=== PATIENT | male | born 1955 | race Caucasian/White ===

== ENCOUNTER → 2019-03-16 06:42 | Outpatient (CLI) | payer OTHER, SELFPAY ==
--- NOTE | 2019-03-16 06:46 | XR_ITS ---
XR knee RT 3V HISTORY: Pain ITS.REASON: OSTEOARTHRITIS OF LT KNEE ORDERING PHYSICIAN: Teja Fraga MD PATIENT AGE: 63 years COMPARISON: 06/10/2012 FINDINGS: There are mild tricompartmental osteoarthritic changes. No acute fracture or dislocation is evident. Faint calcifications are noted over the proximal tibiofibular region not quite as dense as the previous exam and in part may be due to the technique. Small suprapatellar effusion noted. IMPRESSION: 1. Mild tricompartmental osteoarthritis which is overall not significant change. 2. 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
[2019-03-16 07:14] LABS: Basophils % 0.4 % (0.1-2.0); Eosinophils # 0.2 K/mm3 (0.0-0.4); Eosinophils % 1.8 % (0.1-12.0); Hematocrit 47.9 % (42.0-52.0); Hemoglobin 15.6 g/dL (14.1-18.0); Lymphocytes # 2.4 K/mm3 (0.7-4.5); Lymphocytes % 22.3 % (10-50); Mean Corpuscular HGB Conc 32.5 g/dL (31.8-35.4); Mean Corpuscular Volume 92.4 fl (80-94); Mean Platelet Volume 7.8 fl (7.4-10.4); Monocytes # 0.5 K/mm3 (0.1-1.0); Monocytes % 4.7 % (1.7-9.3); Neutrophils # 7.6 K/mm3 (1.8-7.8); Neutrophils % 70.8 % (37.0-80.0); Platelet Count 291 K/mm3 (142-424); Red Blood Count 5.18 M/mm3 (4.60-6.20); Red Cell Distribution Width 13.7 % (11.5-17.5); White Blood Count 10.8 K/mm3 (4.8-10.8)
[2019-03-16 10:13] LABS: Alanine Aminotransferase 44 U/L (12-78); Albumin Level 3.6 gm/dL (3.4-5.0); Albumin/Globulin Ratio 1.1 (1.1-1.8); Alkaline Phosphatase 133 U/L (46-116); Anion Gap 14.7 mEq/L (5-15); Aspartate Amino Transferase 16 U/L (15-37); Bilirubin,Total 0.3 mg/dL (0.2-1.0); Blood Urea Nitrogen 8 mg/dL (7-18); Calcium 9.2 mg/dL (8.5-10.1); Carbon Dioxide 25 mmol/L (21.0-32.0); Chloride 105 mmol/L (98-107); Chol/HDL Ratio 3.8 (1-3.5); Cholesterol 148 mg/dL (140-200); Creatinine,Serum 1.01 mg/dL (0.70-1.30); Estimated Glomerular Filt Rate 75 ml/min (>60); GFR (African American) 91 ML/MIN (>60); Globulin 3.2 gm/dl (1.3-3.2); Glucose 112 mg/dL (74-106); HDL Cholesterol 39 mg/dL (27-67); LDL Cholesterol 85 mg/dL (0-130); Potassium 3.7 mmoL/L (3.5-5.1); Sodium 141 mmol/L (136-145); Total Protein,Serum 6.8 gm/dL (6.4-8.2); Triglycerides 120 mg/dL (30-200); VLDL Cholesterol 24 mg/dL (0-40)
== END ==
PROVIDERS: PCP Internal Medicine Adolescent Medicine; Visit Provider Internal Medicine Adolescent Medicine
DX: E11.9 Type 2 diabetes mellitus without complications (principal); Z79.84 Long term (current) use of oral hypoglycemic drugs; M17.12 Unilateral primary osteoarthritis, left knee
CPT/HCPCS: 36415; 73562; 80053; 80061; 83036; 85025

== ENCOUNTER → 2019-09-20 07:49 | Outpatient (CLI) | payer OTHER, SELFPAY ==
--- NOTE | 2019-09-20 08:06 | CT_ITS ---
PROCEDURE: CT LUNG SCREENING CLINICAL INDICATION: CURRENT TOBACCO USE Forty pack-year smoking history, asymptomatic for lung cancer COMPARISON: No exams were available for comparison TECHNIQUE: The exam was performed on a GE Light Speed [address] scanner using 2.90 mGy CTDI. A low dose helical CT CHEST was performed on a multi-detector scanner. All CT scans at the facility use one or more dose reduction, viz: automated exposure control, ma/kV adjustment per patient size (including targeted exams where dose is matched to indication, i.e. head), or iterative reconstruction technique. The LDCT was performed in a facility that meets the criteria for the screening program. Data regarding this exam was submitted to ACR which is an approved registry. The order for this exam indicates that it came as a result of a lung cancer screening counseling shard decision-making visit that included all the elements required of such a visit including smoking cessation. The radiologist interpreting this exam meets the [facility] criteria for the LDCT lung cancer screening program. The exam is reported using the Lung-RADS classification scale and reported to the ACR registry. NOTE: This study was performed for the specific purposes of lung cancer screening and is not an alternative to diagnostic chest CT. RADIATION DOSE: CTDI vol(CT dose Index-volume) = 2.90mG DLP (Dose Length Product) = 111.77 mGcm FINDINGS: Centrilobular emphysema. No suspicious pulmonary nodules identified. Mild fibrotic changes/scarring in the lingula OTHER FINDINGS: There is an enlarged left paratracheal lymph node at 3.2 x 1.2 cm. There is an additional small mediastinal lymph node at the aortopulmonic window at 11 mm. Coronary artery calcifications are present IMPRESSION: 1. Lung rads category 1, negative. Recommend annual LD CT screening exam 2. Centrilobular emphysema/COPD 3. Coronary artery calcification. 4. Increased soft tissue density in the left paratracheal region. This may be either related to enlarged inferior extension of the thyroid gland or a paratracheal lymph node. CT of the neck with contrast or ultrasound of the thyroid may provide further evaluation. Follow-up is recommended. Dictated by: Shahzad Nathan MD 09/20/2019 14:44 Electronically signed by Shahzad Nathan MD in [place] 09/26/2019 07:03
== END ==
PROVIDERS: PCP Internal Medicine Adolescent Medicine; Visit Provider Internal Medicine Adolescent Medicine
DX: Z87.891 Personal history of nicotine dependence (principal); Z12.2 Encounter for screening for malignant neoplasm of respiratory organs

== ENCOUNTER → 2019-10-10 09:26 | Outpatient (CLI) | payer OTHER, SELFPAY ==
--- NOTE | 2019-10-10 09:34 | CT_ITS ---
PROCEDURE: CT SOFT TISSUE NECK W CON CLINICAL HISTORY: NECK MASS COMPARISON: No exams were available for comparison TECHNIQUE: Oral Contrast: 75 mL of Optiray 350 IV Contrast: None Axial images obtained with sagittal and coronal reformats. All CT scans at the facility use one or more dose reduction, viz: automated exposure control, ma/kV adjustment per patient size (including targeted exams where dose is matched to indication, i.e. head), or iterative reconstruction technique. FINDINGS: Images at the base of the skull show mild inflammatory changes right mastoids, left mastoids are clear. There is moderate mucoperiosteal thickening of the right maxillary sinus. The parotid glands and submandibular glands are grossly normal and symmetric bilaterally. The piriform sinuses are symmetric bilaterally. The thyroid gland shows homogeneous enhancement of both lobes with no definite nodules identified. There is no abnormal cervical lymphadenopathy.1 scanned in the upper chest show moderate amount of fat within the superior mediastinum. The visualized portions of the lung apices and upper lung larson are clear bilaterally. There is no abnormal cervical lymphadenopathy. IMPRESSION: Chronic inflammatory changes right maxillary sinus, mild acute and/or chronic right mastoiditis, otherwise essentially unremarkable CT exam of the neck Dictated by: Dr. Raf Rivero MD 10/10/2019 12:[address] Raf Rivero MD in [place] 10/10/2019 12:22
[2019-10-10 09:51] LABS: Blood Urea Nitrogen 9 mg/dL (7-18); Creatinine,Serum 0.88 mg/dL (0.70-1.30); Estimated Glomerular Filt Rate 88 ml/min (>60); GFR (African American) 106 ML/MIN (>60)
== END ==
PROVIDERS: PCP Internal Medicine Adolescent Medicine; Visit Provider Internal Medicine Adolescent Medicine
DX: R22.1 Localized swelling, mass and lump, neck (principal)
CPT/HCPCS: 36415; 70491; 82565; 84520

== ENCOUNTER → 2019-10-27 18:04 | Outpatient (CLI) | payer OTHER, SELFPAY ==
--- NOTE | 2019-10-27 18:09 | XR_ITS ---
PROCEDURE: XR KNEE LT 3V CLINICAL INDICATION: LEFT ANTERIOR KNEE PAIN COMPARISON: No exams were available for comparison FINDINGS: No fracture or dislocation. No lytic or blastic change. There is normal mineralization. There are mild osteoarthritic changes of all 3 compartments. There is a faint subcortical lucency the subcortical region of the right medial femoral condyle measuring 7 mm and could represent an area of osteochondrosis. On the lateral view there is a faint calcific lesion just posterior to the proximal tibia at 3 cm possibly due to a synovial osteo chondroma. This however is not noted to be separate from the bone. Small suprapatellar effusion suspected Other findings:None. IMPRESSION: 1. Osteoarthritis with possible osteochondrosis of the medial femoral condyle. 2. Faint calcific lesion along proximal tibia posteriorly and could be due to synovial osteo chondroma or an exophytic bony lesion. MRI of the knee may provide further evaluation. Dictated by: Shahzad Nathan MD 10/27/2019 18:31 Electronically signed by Shahzad Nathan MD in [place] 10/27/2019 18:32
[2019-10-27 18:13] LABS: Basophils # 0.1 K/mm3 (0-0.2); Basophils % 0.7 % (0.1-2.0); Eosinophils # 0.4 K/mm3 (0.0-0.4); Hematocrit 47.6 % (42.0-52.0); Hemoglobin 15.6 g/dL (14.1-18.0); Lymphocytes # 3.3 K/mm3 (0.7-4.5); Lymphocytes % 28.2 % (10-50); Mean Corpuscular HGB Conc 32.7 g/dL (31.8-35.4); Mean Corpuscular Hemoglobin 30.7 pg (27.0-31.2); Mean Corpuscular Volume 93.8 fl (80-94); Mean Platelet Volume 7.6 fl (7.4-10.4); Monocytes # 0.5 K/mm3 (0.1-1.0); Monocytes % 4.3 % (1.7-9.3); Neutrophils # 7.5 K/mm3 (1.8-7.8); Neutrophils % 63.7 % (37.0-80.0); Platelet Count 295 K/mm3 (142-424); Red Blood Count 5.07 M/mm3 (4.60-6.20); Red Cell Distribution Width 13.4 % (11.5-17.5); White Blood Count 11.7 K/mm3 (4.8-10.8)
[2019-10-27 18:23] LABS: Uric Acid 6.2 mg/dL (2.6-7.2)
== END ==
PROVIDERS: Visit Provider Nurse Practitioner Family
DX: M25.562 Pain in left knee (principal); M25.462 Effusion, left knee
CPT/HCPCS: 36415; 73562; 84550; 85025

== ENCOUNTER 2020-03-12 16:00 | Outpatient (RCR) | payer OTHER, SELFPAY ==
--- NOTE | 2020-02-27 17:20 | HMH.PTOPEV ---
PT Outpatient Evaluation Rehab PT Outpatient Evaluation Start: 02/27/20 16:41 Freq: Status: Active Protocol: Document 02/27/20 16:41 SHONDA (Rec: 02/27/20 17:19 PDESEROUX [id number]) Electronically Signed By Cb Arango, PT 02/27/20 16:41 Outpatient Therapy Subjective History Subjective History Pt. is a 64 year old male who presents to outpatient PT clinic with complaints of chronic and constant R superior/posterior P! of insidious onset 9 months ago pt. reports. Pt. also complains of increased numbness in digits of R hand since R shldr. P!. Pt. reports there was already numbness after my stroke, but it's increased now. Pt. denies symptoms into L cervical/ shoulder/LUE. Pt. denies recent diagnostic imaging no injections for current pathology. Pt. RTMD 03/18/20. Current medications include Metformin, Aspirin, Buproprion , Amlodipine Besylate, Atorvastatin, Diclofenac, and Losartan. PMH includes previous CVA 2015 and COPD. Chief Complaint Pain,Weakness Symptom Type Ache,Sharp,Dull,Numbness Symptoms Relieved By Rest/Positioning,Heat, Prescription Meds Symptoms Aggravated By Physical Activity,Lifting Prior Functional Limitations None Current Functional Limitations Reaching,Lifting,Dressing Symptom Description Constant and Continuous Level of pain today (0-10) 4 Pain scale - at its best (0-10) 2 Pain scale - at its worst (0-10) 8 Cervical Eval Palpation Cervical Muscles R Upper Trapezius,R Thoracic Paraspinals Cervical/Thoracic Palpation Findings Tenderness Posture Head/C-Spine Posture Sitting Position Flexed Head/C-Spine Posture Standing Position Flexed Flexibility Deficits Upper Trapezius Muscle Length (R) Severe Tightness Levaetor Scapulae Muscle Length (R) Severe Tightness Scalene Group Muscle Length (R) Severe Tightness Pectoralis Major Muscle Length (R) Severe Tightness Pectoralis Minor Muscle Length (R) Severe Tightness Passive Joint Mobility Cervical PIVM Dec: R C5/6
== END 2020-04-04 08:41 | disposition home or self-care (01) ==
LOC: PT.CARL 16:00
PROVIDERS: PCP Internal Medicine Adolescent Medicine; Visit Provider Internal Medicine Adolescent Medicine
DX: S46.811D Strain of other muscles, fascia and tendons at shoulder and upper arm level, right arm, subsequent encounter (principal)
CPT/HCPCS: 97012; 97110; 97140; 97163

== ENCOUNTER → 2020-06-28 07:00 | Outpatient (CLI) | payer OTHER, SELFPAY ==
[2020-06-28 12:59] LABS: Coronavirus 19 IgG Antibody Negative (Negative); Coronavirus 19 IgM Antibody Negative (Negative)
== END ==
PROVIDERS: Visit Provider Internal Medicine Gastroenterology
DX: Z01.818 Encounter for other preprocedural examination (principal); Z12.11 Encounter for screening for malignant neoplasm of colon
CPT/HCPCS: 36415; 86328

== ENCOUNTER 2020-06-29 07:23 | Day surgery (SDC) | payer OTHER, SELFPAY ==
[2020-06-25 15:27] VITALS: BMI 39.1
[2020-06-29 07:43] VITALS: BP 150/80; PULSE 82; RESP 18; TEMP 36.4; O2SAT 97
[2020-06-29 08:32] VITALS: O2SAT 98
--- NOTE | 2020-06-29 08:33 | HMH.PROC ---
[facility] Procedure Note Procedure Note:: Colonoscopy Procedure Report: Colonoscopy with cold snare polypectomy Endoscopist: Stanley Bergman II, MD Referring physician: Teja Fraga M.D. Date of Procedure: June 29, 2020 Equipment: Olympus 180 variable stiffness pediatric colonoscope Sedation: MAC sedation Indication: Mr. Oliva is a 65-year-old gentleman who is here for initial screening colonoscopy. He reports no abdominal pain, weight loss, change in his bowel habits or rectal bleeding. He reports no family history of colon cancer. Procedure: Prior to the procedure, a history and physical exam was performed, and patient's medications and allergies were reviewed. The risks, benefits and alternatives of the sedation and procedure were discussed with the patient. All questions were answered and informed consent was obtained. The patient was brought to the procedure room. Patient identification and proposed procedure were verified by the physician and the nurse. The patient was placed in a left lateral decubitus position and the scope was passed under direct vision. Throughout the procedure, the patient's blood pressure, pulse, and oxygen saturations were monitored continuously. The colonoscopy was accomplished without difficulty. The patient tolerated the procedure well. Findings: On digital rectal examination there was normal rectal tone. There were no external hemorrhoids. The colonoscope was introduced through the anal canal to the rectum and advanced to the cecum. The ileocecal valve and appendiceal orifice were identified. The scope was advanced a short distance into the ileum which appeared grossly normal. The scope was then withdrawn into the colon. The cecum and ascending colon were grossly normal. There was 4 polyps (transverse x1 (3 to 4 mm) and sigmoid x3 (2, 5 and 5 mm)) all of which were removed via cold snare polypectomy. There were scattered diverticuli throughout the descending and sigmoid colon (LEFT colon). The rectum itself was normal. Upon retroflexion within the rectum there were grade 1-2 internal hemorrhoids. The preparation was excellent throughout with [place] Preparation Score of 9. The cecal time was 12 minutes. Impression: 1. Diminutive colonic polyps x4 2. Left-sided diverticulosis 3. Grade 1-2 internal hemorrhoids Plan: I will follow up the polyp pathology and recommend repeat colonoscopy again in 5-7 years based upon the polyp histology. I would encourage bulk fiber supplementation on a long-term daily maintenance basis.
--- NOTE | 2020-06-29 08:38 | HMH.ANESCL ---
[facility] Anesthesia Checklist - Patient Identification Patient Identification: Arm Band, Verbal (Name & ) - Structural Data Admitted From: Home Planned Operative Procedure/s: Colonoscopy Consent for Planned Operative Procedure(s) Verified: Yes Verified Documents: Surgical Consent, History and Physical - NPO Status Verified Time NPO: 00:00 - Chart Verification Results Verified: None - Additional verifications Anesthesia Reactions: No - Airway Assessment C-Spine Mobility Assessed: Yes TMJ Mobility Assessed: Yes Dentition: Poor Dentition (Missing) - Neurological Assessment Level of Consciousness: Awake, Alert, Appropriate, Follows Commands Hx Seizures: No Numbness or tingling in extremities: Yes (Hands and feet) - Anesthesia Plan Anesthesia Risk discussed: Yes Anesthesia Plan: Verified ASA Class: III Anesthesia Type: MAC [facility] [place] History I have reviewed the patient's past medical history: Yes Medical History: Reports:: Chronic Obstructive Pulmonary Disease (COPD), Cerebrovascular Accident, Depression, Diabetes Mellitus Type 2, Hyperlipidemia, Hypertension, Transient Ischemic Attacks (TIA) Denies:: Cancer, Diabetes Mellitus Type 1, Internal Pacemaker, MRSA, Seizures *Have you ever received a pneumonia vaccine?: Yes *Have you received a flu vaccine this season?: No Comment:: ELOY uses CPAP, obesity, neuropathy Anesthesia experience/problems:: No prior complications Other Surgeries: Yes: Cholecystectomy. No: Pacemaker Amputation: No Fractures: Yes - *Social History Last grade of school completed: High school graduate Smoking Status: Current every day smoker Tobacco Type: cigarettes # Packs/Day (cigarettes): 1 Alcohol Intake: current Alcohol Intake Frequency:: holidays/special occasions only Substance Use Type: denies use *Occupational Status:: employed Housing: house *Travel in the last 8 weeks: None - Psychiatric History Pschychiatric History:: Reports:: Depression Family Hx:: Unable to obtain
[2020-06-29 08:55] VITALS: BP 129/84; PULSE 69; RESP 16; TEMP 36.8; O2SAT 94
[2020-06-29 09:05] VITALS: BP 158/96; PULSE 56; RESP 16; O2SAT 94
[2020-06-29 09:15] VITALS: BP 132/70; PULSE 70; RESP 16; O2SAT 95
[2020-06-29 09:25] VITALS: BP 145/82; PULSE 72; RESP 16; O2SAT 95
[2020-06-29 10:11] LABS: POC Glucose,Bedside 102 (70-110)
== END 2020-06-29 09:25 | disposition home or self-care (01) ==
LOC: OUTP 07:25
PROVIDERS: PCP Internal Medicine Adolescent Medicine; Visit Provider Internal Medicine Gastroenterology
PROC: 0DJD8ZZ Inspection of Lower Intestinal Tract, Via Natural or Artificial Opening Endoscopic (ICD-10-PCS; CPT 45378; principal; 2020-06-29 08:30)
DX: Z12.11 Encounter for screening for malignant neoplasm of colon (principal); K63.5 Polyp of colon; K57.30 Diverticulosis of large intestine without perforation or abscess without bleeding; K64.0 First degree hemorrhoids; J44.9 Chronic obstructive pulmonary disease, unspecified; F32.9 Major depressive disorder, single episode, unspecified; E11.9 Type 2 diabetes mellitus without complications; E78.5 Hyperlipidemia, unspecified; I10 Essential (primary) hypertension; Z86.73 Personal history of transient ischemic attack (TIA), and cerebral infarction without residual deficits; Z72.0 Tobacco use; Z79.899 Other long term (current) drug therapy
CPT/HCPCS: 45385; 82962

== ENCOUNTER → 2021-04-30 08:00 | Outpatient (CLI) | payer OTHER, SELFPAY ==
[2021-05-01 14:50] LABS: Alanine Aminotransferase 38 U/L (12-78); Albumin Level 4.4 g/dl (3.5-5.0); Albumin/Globulin Ratio 1.6 (1.1-1.8); Alkaline Phosphatase 96 U/L (38-126); Anion Gap 15.8 mEq/L (5-15); Aspartate Amino Transferase 39 U/L (17-59); Bilirubin,Total 0.5 mg/dl (0.2-1.3); Blood Urea Nitrogen 14 mg/dl (9-20); Calcium 9.2 mg/dl (8.4-10.2); Carbon Dioxide 23 mmol/L (22.0-30.0); Chloride 103 mmol/L (98-107); Cholesterol 247 mg/dl (140-200); Estimated Glomerular Filt Rate 75 ml/min (>60); GFR (African American) 91 ML/MIN (>60); Globulin 2.7 g/dL (1.3-3.2); Glucose 97 mg/dl (74-100); HDL Cholesterol 41 mg/dl (40-60); Potassium 4.8 mmoL/L (3.5-5.1); Sodium 137 mmol/L (136-145); Total Protein,Serum 7.1 g/dl (6.3-8.2); Triglycerides 220 mg/dl (30-150); VLDL Cholesterol 44 mg/dL (0-40)
[2021-05-01 15:01] LABS: Direct LDL Cholesterol 168.31 mg/dL (100-129)
== END ==
PROVIDERS: Visit Provider Internal Medicine Adolescent Medicine
DX: E78.5 Hyperlipidemia, unspecified (principal)
CPT/HCPCS: 80053; 80061

== ENCOUNTER → 2023-04-03 10:45 | Outpatient (CLI) | payer OTHER, SELFPAY ==
--- NOTE | 2023-04-03 10:48 | CT_ITS ---
FINAL REPORT TECHNIQUE: Axial images were obtained from the lung apex to the mid abdomen by computed tomography. This study was performed with techniques to keep radiation doses as low as reasonably achievable (ALARA). Individualized dose reduction techniques using automated exposure control or adjustment of mA and/or kV according to the patient's size were employed. CLINICAL HISTORY: NICOTINE USE, SMOKES 1 1/2 PKS PER DAY X 50 YEARS COPD COMPARISON: 09/20/2019 FINDINGS: CHEST CT LOW DOSE CTDI vol (mGy): 2.90 DLP (mGy-cm): 115.16 There is no axillary adenopathy. There is no hilar or mediastinal adenopathy. The heart is normal in size. There is no pericardial or pleural effusion. Lung window images demonstrate no suspicious infiltrate or nodule. There is scarring at the left base. Limited images of the upper abdomen are unremarkable. IMPRESSION: Lung RADS category 1. Recommend 12 month follow-up low-dose chest CT. Reviewed, Interpreted and Dictated by Austin Tomlinson MD Transcribed by Yuni Ramirez Authenticated and [facility]
== END ==
PROVIDERS: PCP Internal Medicine Adolescent Medicine; Visit Provider Internal Medicine Adolescent Medicine
DX: Z87.891 Personal history of nicotine dependence (principal); Z12.2 Encounter for screening for malignant neoplasm of respiratory organs
CPT/HCPCS: 71271

== ENCOUNTER 2023-06-07 10:25 | Emergency (ER) | payer OTHER, SELFPAY ==
--- NOTE | 2023-06-07 10:40 | EXP.UTC ---
Discharge Plan Disposition Patient Disposition: Home, Self-Care Condition: Good Prescriptions Prescriptions: New benzonatate [benzonatate] 100 mg capsule 100 mg PO TIDP PRN (Reason: Cough) Qty: 30 0RF prednisone 10 mg tablet 10 mg PO DIRECTED 9 Days Qty: 21 0RF Rx Instructions: Take 4 tablets daily for 3 days, then take 2 tablets daily for 3 days, then take 1 tablet daily for 3 days, then stop. amoxicillin [amoxicillin] 875 mg tablet 875 mg PO Q12H Qty: 20 0RF albuterol sulfate [Ventolin HFA] 90 mcg/actuation HFA aerosol inhaler 2 puff inhalation Q6H PRN (Reason: shortness of breath or wheezing) Qty: 6.7 0RF No Action atorvastatin 80 mg tablet 80 mg PO DAILY aspirin [Adult Low Dose Aspirin] 81 mg tablet,delayed release (DR/EC) 81 mg PO DAILY bupropion HCl 150 mg tablet extended release 24 hr 150 mg PO DAILY amlodipine-benazepril 10-40 mg capsule 1 cap PO DAILY hydrochlorothiazide 25 mg tablet 25 mg PO DAILY celecoxib [Celebrex] 200 mg capsule 200 mg PO BID Referrals Follow up/Referrals: Teja Fraga MD [Primary Care Provider] - See instructions Activity Restrictions/Add. Instructions Additional Instructions/Restrictions: Drink plenty of fluids. Take tylenol or ibuprofen for pain or fever. Take the medications as directed. Follow up with your regular doctor. GO TO THE ER FOR ANY WORSENING SYMPTOMS Clinical Impressions Clinical Impression: COPD exacerbation, Acute bronchitis, Sinusitis Instructions Patient Instructions: DI for Chronic Obstructive Pulmonary Disease, DI for Sinusitis, DI for Acute Bronchitis Discharge ED Provider: Osvaldo Diaz [facility] General Stated complaint: cough and SOA Time Seen by Provider: 06/07/23 10:40 History of Present Illness Provider Complaint: He states that for the past 2 weeks he has had worsening chest congestion, sinus congestion, malaise, and cough. He has a history of copd. Related Data Home Medications Medication Instructions Recorded Confirmed aspirin 81 mg tablet,delayed 81 mg PO DAILY CAD 12/08/18 12/04/20 release (Adult Low Dose Aspirin) atorvastatin 80 mg tablet 80 mg PO DAILY Cholesterol 12/08/18 12/04/20 bupropion HCl 150 mg 24 hr tablet, 150 mg PO DAILY Depression 12/08/18 12/04/20 extended release amlodipine 10 mg-benazepril 40 mg 1 cap PO DAILY 12/19/21 12/19/21 capsule celecoxib 200 mg capsule (Celebrex) 200 mg PO BID 12/19/21 12/19/21 hydrochlorothiazide 25 mg tablet 25 mg PO DAILY 12/19/21 12/19/21 Previous Rx's Medication Instructions Recorded albuterol sulfate 90 mcg/actuation 2 puff inhalation Q6H PRN 06/07/23 aerosol inhaler (Ventolin HFA) shortness of breath or wheezing #6.7 grams amoxicillin 875 mg tablet 875 mg PO Q12H #20 tabs 06/07/23 benzonatate 100 mg capsule 100 mg PO TIDP PRN Cough #30 caps 06/07/23 prednisone 10 mg tablet 10 mg PO DIRECTED 9 days #21 06/07/23 tabs Allergies Allergy/AdvReac Type Severity Reaction Status Date / Time No Known Allergies Allergy Verified 12/19/21 15:19 [facility] Disclaimer: The information contained in this section may have been updated after the patient was seen, as this information can be updated by other users. Social History Smoking Status: Current every day smoker tobacco type: cigarettes packs per day: 1 alcohol intake: current substance use type: denies use current occupational status: employed Travel in the last 8 weeks: None housing: house current occupation: [employer] current occupational exposures/hazards: No caffeine: Yes ROS Obtained: Yes All systems reviewed & no additional complaints except as documented Constitutional Constitutional: Reports poor appetite Eyes Eyes: Reports system reviewed and no additional complaints, except as documented ENT Ears, Nose, Mouth, and Throat: Reports as per HPI Cardiovascular Cardiovascular:
--- NOTE | 2023-06-07 10:42 | XR_ITS ---
PROCEDURE INFORMATION: Exam: XR Chest Exam date and time: 06/07/2023 10:52 AM Age: 68 years old Clinical indication: Cough and shortness of breath; Additional info: SOA TECHNIQUE: Imaging protocol: Radiologic exam of the chest. Views: 2 views. COMPARISON: CT LUNG SCREENING 04/03/2023 10:57 AM FINDINGS: Lungs: No focal airspace disease. Pleural spaces: Unremarkable. No pleural effusion. No pneumothorax. Heart/Mediastinum: Cardiomediastinal silhouette is within normal limits. Bones/joints: Unremarkable. IMPRESSION: No acute cardiopulmonary abnormality.
[2023-06-07 10:47] VITALS: BP 151/73; PULSE 69; RESP 18; TEMP 36.7; O2SAT 95; BMI 38.0
[2023-06-07 11:53] VITALS: BP 151/73; PULSE 69; RESP 18; TEMP 36.7; O2SAT 95
== END 2023-06-07 11:54 | disposition home or self-care (01) ==
PROVIDERS: Emergency Provider Nurse Practitioner Family; PCP Internal Medicine Adolescent Medicine
DX: J44.1 Chronic obstructive pulmonary disease with (acute) exacerbation (principal); J20.9 Acute bronchitis, unspecified; J01.90 Acute sinusitis, unspecified; R53.81 Other malaise; F17.210 Nicotine dependence, cigarettes, uncomplicated
CPT/HCPCS: 71046; 96372; 99204; 99212; G0463; J0696

== ENCOUNTER 2024-11-25 12:41 | Outpatient (CLI) | payer BC, SELFPAY ==
--- NOTE | 2024-11-25 12:43 | XR_ITS ---
FINAL REPORT CLINICAL HISTORY: cough, chest congestion, pneumonia COMPARISON: 11/07/2019 FINDINGS: There are increased markings in the left perihilar region suspicious for pneumonia. The right lung is clear. There is no evidence of effusion or other pleural disease. The mediastinum has a normal appearance. The cardiac silhouette is unremarkable. IMPRESSION: Left perihilar pneumonia. Reviewed, Interpreted and Dictated by Berlin Pitt MD Transcribed by Gisela Rosado Authenticated and [facility]
== END 2024-11-25 23:59 | disposition home or self-care (01) ==
LOC: RAD 12:42
PROVIDERS: PCP Internal Medicine Adolescent Medicine; Visit Provider Nurse Practitioner Family
DX: J18.9 Pneumonia, unspecified organism (principal); J20.9 Acute bronchitis, unspecified; R05.9 Cough, unspecified
CPT/HCPCS: 71046

== ENCOUNTER 2025-03-21 06:51 | Outpatient (CLI) | payer BC, SELFPAY ==
--- OUTSIDE RECORDS SUMMARY | 2025-03-21 06:54 | XMS_ITS | Data Portability ---
Author Organization [facility] Address [address] [place] [address] Assessment Encounter Date Assessment Date Assessment LastModified by Organization Details LastModified Time 12/05/2024 12/05/2024 He says colonoscopy and screening lung scan are UTD. We will request [email or web address] Not available 12/11/2024 19:38:43 Plan of Treatment Reminders Order Date Submit Date Provider Last Modified By Organization Details Last Modified Time Details Appointments FOLLOW UP 30 2024 08:00A Paige Garay APRN Not available Not available Not available Lab HbA1c (hemoglob in A1c), blood [address], [address], 03/13/2025 09:54:24 CMP, serum or plasma 2024 025 [email or web address] [address] [place] [address], [id number], 03/15/2025 07:07:31 lipid panel, serum 2024 025 [email or web address], [address] [place] [address], [address], 03/15/2025 07:07:32 vitamin D, 25-hydrox y, total, serum 2024 025 [email or web address], [address] [place] [address], [address], 03/15/2025 07:07:32 vitamin D, 25-hydrox y, total, serum 2024 025 [facility] [place], [address], 11/29/2024 08:13:38 PSA, total, serum or plasma 2024 025 [facility] [address] [place] [address], [address], 11/29/2024 08:13:37 CMP, serum or plasma 2024 025 [facility] [address] [place] [address], [address], 11/29/2024 08:13:34 microalbu min/creat inine, mass ratio, urine 2024 025 [facility] [address] [place] [address], [address], 11/29/2024 08:13:35 CBC w/ auto diff 2024 025 [facility] [address] [place] [address], [address], 11/29/2024 08:13:33 lipid panel, serum 2024 025 [facility] [address] [place] [address], [address], 11/29/2024 08:13:35 HbA1c (hemoglob in A1c), blood 2024 025 [facility] [address] [place] [address], [address], 11/29/2024 08:13:36 urinalysi s, dipstick [address]23 [email or web address], [address], 09/20/2024 17:41:10 HbA1c (hemoglob in A1c), blood [address], [address] [place] [address], [address], 09/20/2024 17:41:10 HbA1c (hemoglob in A1c), blood [address], [address], 03/18/2023 16:29:44 urinalysi s, dipstick [address], [address], 03/18/2023 16:29:44 Referral dermatolo gist referral - Dr Cuellar [facility], first avail 2024 025 [email or web address] Cuellar MD, [address] [place] [address], [address], 03/20/2025 12:15:00 Procedures None recorded. Surgeries None recorded. Imaging CT, chest, w/o contrast - prefers AM appt please 2024 025 [email or web address] [facility] [address], [place], [address], 03/20/2025 09:59:24 XR, chest, 2 view [email or web address] [place] [address], [address], 12/12/2024 12:45:43 XR, chest, 2 view [email or web address], [address], 11/28/2024 11:37:42 Medication Orders Symbicort 160 mcg-4.5 mcg/actua tion HFA aerosol inhaler 2024 025 [facility], [address] [place] [address], [address], 03/13/2025 16:38:47 Celebrex 200 mg capsule 2024 025 [facility], [address] [place] [address], [address], 03/13/2025 16:38:45 Jardiance 10 mg tablet 2024 025 [facility], [address] [place] [address], [address], 03/13/2025 16:38:41 rosuvasta tin 10 mg tablet 2024 025 [facility], [address] [place] [address], [address], 03/13/2025 16:38:25 nystatin 100,000 unit/gram topical powder 2024 025 [facility], [address] [place] [address], [address], 03/13/2025 16:38:32 amlodipin e 10 mg-benaze pril 40 mg capsule 2024 025 [facility], [address] [place] [address], [address], 03/13/2025 16:38:37 hydrochlo rothiazid e 25 mg tablet 2024 025 [facility], [address] [place] [address], [address], 03/13/2025 16:38:29 ergocalci ferol (vitamin D2) 1,250 mcg (50,000 unit) capsule 2024 025 [facility], [address] [place] [address], [address], 12/05/2024 15:20:40 Jardiance 10 mg tablet 2024 025 [facility], [address] [place] [address], [address], 12/08/2024 15:29:52 rosuvasta tin 10 mg tablet 2024 025 [facility], [address] [place] [address], [address], 12/08/2024 15:29:52 amlodipin e 10 mg-benaze pril 40 mg capsule 2024 025 [facility], [address] [place] [address], [address], 12/05/2024 15:20:41 hydrochlo rothiazid e 25 mg tablet 2024 025 [facility], [address] [place] [address], [address], 12/05/2024 15:20:39 ceftriaxo ne 1 gram solution for injection 2024 025 [email or web address] Not available 12/05/2024 14:33:19 Mucinex DM 30 mg-600 mg tablet,ex tended release 12 hr 2024 025 [facility], [address] [place] [address], [address], 12/05/2024 15:45:51 cefdinir 300 mg capsule 2024 025 [facility], [address] [place] [address], [address], 12/05/2024 15:45:51 ProAir HFA 90 mcg/actua tion aerosol inhaler 2024 025 [facility], [address] [place] [address], [address], 11/28/2024 10:56:26 Patient TargetsNo targets recorded. Patient Instructions Encounter Date Encounter Id Patient Instructions Last Modified By Organization Details Last Modified Time 09/20/2024 [id number] visual acuity* [email or web address] Not available 02/06/2025 13:37:03 Reason for Referral [employer] Referral for N eoplasm of skin Dr Polo Armenta [place], first avail Referring Physician: Lauryn Garay, Family Medicine, Encounter Date: 03/13/2025 Results Created Date Observation Date Name Description Value Unit Range Abnormal Flag Note LastModifiedBy Organization Detail LastModifiedTime 03/18/2003/18/2023 urina lysis , dipst ick Leukocytes Negati ve Not Available [address], [address], 03/18/2023 16:25:22 03/18/20 23 03/18/2023 urina lysis , dipst ick Nitrite negati ve Not Available [address], [address], 03/18/2023 16:25:22 03/18/20 23 03/18/2023 urina lysis , dipst ick Urobilinogen .2 Not Available [address], [address], 03/18/2023 16:25:22 03/18/20 23 03/18/2023 urina lysis , dipst ick Protein Negati ve Not Available [address], [address], 03/18/2023 16:25:22 03/18/20 23 03/18/2023 urina lysis , dipst ick pH 6.5 Not Available [address], [address], 03/18/2023 16:25:22 03/18/20 23 03/18/2023 urina lysis , dipst ick Blood Non-He molyze d: Trace Not Available [address], [address], 03/18/2023 16:25:22 03/18/20 23 03/18/2023 urina lysis , dipst ick Specific [place] 1.020 Not Available [address], [address], 03/18/2023 16:25:22 03/18/20 23 03/18/2023 urina lysis , dipst ick Ketone Negati ve Not Available [address], [address], 03/18/2023 16:25:22 03/18/20 23 03/18/2023 urina lysis , dipst ick Bilirubin Negati ve Not Available [address], [address], 03/18/2023 16:25:22 03/18/20 23 03/18/2023 urina lysis , dipst ick Glucose Negati ve Not Available [address], [address], 03/18/2023 16:25:22 03/18/20 23 03/18/2023 urina lysis , dipst ick Appearance Clear Not Available [address], [address], 03/18/2023 16:25:22 03/18/20 23 03/18/2023 urina lysis , dipst ick Color Pale Yellow Not Available [address], [address], 03/18/2023 16:25:22 03/18/20 23 03/18/2023 HbA1c (hemo globi n A1c), blood HbA1c 6.5 Not Available [address], [address], 03/18/2023 16:25:15 09/20/20 24 09/20/2024 urina lysis , dipst ick Leukocytes Negati ve Not Available [address], [address], 09/20/2024 16:55:21 09/20/20 24 09/20/2024 urina lysis , dipst ick Nitrite negati ve Not Available [address], [address], 09/20/2024 16:55:21 09/20/20 24 09/20/2024 urina lysis , dipst ick Urobilinogen 1 Not Available [address], [address], 09/20/2024 16:55:21 09/20/20 24 09/20/2024 urina lysis , dipst ick Protein Negati ve Not Available [address], [address], 09/20/2024 16:55:21 09/20/20 24 09/20/2024 urina lysis , dipst ick pH 6.5 Not Available [address], [address], 09/20/2024 16:55:21 09/20/20 24 09/20/2024 urina lysis , dipst ick Blood Non-He molyze d: Trace Not Available [address], [address], 09/20/2024 16:55:21 09/20/2009/20/2024 urina lysis , dipst ick Specific [place] 1.030 Not Available [address], [address], 09/20/2024 16:55:21 09/20/20 24 09/20/2024 urina lysis , dipst ick Ketone Negati ve Not Available [address], [address], 09/20/2024 16:55:21 09/20/2009/20/2024 urina lysis , dipst ick Bilirubin Negati ve Not Available [address], [address], 09/20/2024 16:55:21 09/20/2009/20/2024 urina lysis , dipst ick Glucose Negati ve Not Available [address], [address], 09/20/2024 16:55:21 09/20/2009/20/2024 urina lysis , dipst ick Appearance Clear Not Available [address], [address], 09/20/2024 16:55:21 09/20/2009/20/2024 urina lysis , dipst ick Color Yellow Not Available [address], [address], 09/20/2024 16:55:21 09/20/20 24 09/20/2024 HbA1c (hemo globi n A1c), blood HbA1c 6.2 Not Available [address], [place], [address], 09/20/2024 16:55:28 11/28/19 25 11/29/2024 CBC WITH DIFFE RENTI AL/PL ATELE T WBC 10.5 x10e3 /uL 3.4-10 .8 normal Not Available [facility] ([facility]) [address], [place], [address], 11/29/2024 08:13:33 11/28/19 25 11/29/2024 CBC WITH DIFFE RENTI AL/PL ATELE T RBC 5.30 x10e6 /uL 4.14-5 .80 normal Not Available [facility] ([facility]) [address] [place], [address], 11/29/2024 08:13:33 11/28/19 25 11/29/2024 CBC WITH DIFFE RENTI AL/PL ATELE T hemoglobin 15.8 g/dL 13.0-1 7.7 normal Not Available [facility] ([facility]) [address], [place], [address], 11/29/2024 08:13:33 11/28/19 25 11/29/2024 CBC WITH DIFFE RENTI AL/PL ATELE T hematocrit 47.5 % 37.5-5 1.0 normal Not Available [facility] ([facility]) [address] [place], [address], 11/29/2024 08:13:33 11/28/19 25 11/29/2024 CBC WITH DIFFE RENTI AL/PL ATELE T MCV 90 fL 79-97 normal Not Available [facility] ([facility]) [address] [place], [address], 11/29/2024 08:13:33 11/28/19 25 11/29/2024 CBC WITH DIFFE RENTI AL/PL ATELE T MCH 29.8 pg 26.6-3 3.0 normal Not Available [facility] ([facility]) [address], [place], [address], 11/29/2024 08:13:33 11/28/19 25 11/29/2024 CBC WITH DIFFE RENTI AL/PL ATELE T MCHC 33.3 g/dL 31.5-3 5.7 normal Not Available [facility] ([facility]) [address], [place], [address], 11/29/2024 08:13:33 11/28/19 25 11/29/2024 CBC WITH DIFFE RENTI AL/PL ATELE T RDW 12.9 % 11.6-1 5.4 Not Available [facility] ([facility]) [address], [place], [address], 11/29/2024 08:13:33 11/28/19 25 11/29/2024 CBC WITH DIFFE RENTI AL/PL ATELE T platelets 245 x10e3 /uL 150-45 0 normal Not Available [facility] ([facility]) [address] [place], [address], 11/29/2024 08:13:33 11/28/19 25 11/29/2024 CBC WITH DIFFE RENTI AL/PL ATELE T neutrophils 69 % not estab. normal Not Available [facility] ([facility]) [address] [place], [address], 11/29/2024 08:13:33 11/28/19 25 11/29/2024 CBC WITH DIFFE RENTI AL/PL ATELE T lymphs 23 % not estab. normal Not Available [facility] ([facility]) [address] [place], [address], 11/29/2024 08:13:33 11/28/19 25 11/29/2024 CBC WITH DIFFE RENTI AL/PL ATELE T monocytes 6 % not estab. normal Not Available [facility] ([facility]) [address], [place], [address], 11/29/2024 08:13:33 11/28/19 25 11/29/2024 CBC WITH DIFFE RENTI AL/PL ATELE T eos 1 % not estab. normal Not Available [facility] ([facility]) [address], [place], [address], 11/29/2024 08:13:33 11/28/19 25 11/29/2024 CBC WITH DIFFE RENTI AL/PL ATELE T basos 0 % not estab. normal Not Available [facility] ([facility]) [address], [place], [address], 11/29/2024 08:13:33 11/28/19 25 11/29/2024 CBC WITH DIFFE RENTI AL/PL ATELE T immature cells TILE TRIMMER Not Available [facility] ([facility]) [address] [place], [address], 11/29/2024 08:13:33 11/28/19 25 11/29/2024 CBC WITH DIFFE RENTI AL/PL ATELE T neutrophils (absolute) 7.3 x10e3 /uL 1.4-7. 0 above high normal Not Available [facility] ([facility]) [address] [place], [address], 11/29/2024 08:13:33 11/28/19 25 11/29/2024 CBC WITH DIFFE RENTI AL/PL ATELE T lymphs (absolute) 2.4 x10e3 /uL 0.7-3. 1 normal Not Available [facility] ([facility]) [address] [place], [address], 11/29/2024 08:13:33 11/28/19 25 11/29/2024 CBC WITH DIFFE RENTI AL/PL ATELE T monocytes(ab solute) 0.6 x10e3 /uL 0.1-0. 9 normal Not Available [facility] ([facility]) [address], [place], [address], 11/29/2024 08:13:33 11/28/19 25 11/29/2024 CBC WITH DIFFE RENTI AL/PL ATELE T eos (absolute) 0.1 x10e3 /uL 0.0-0. 4 normal Not Available [facility] ([facility]) [address], [place], [address], 11/29/2024 08:13:33 11/28/19 25 11/29/2024 CBC WITH DIFFE RENTI AL/PL ATELE T baso (absolute) 0.0 x10e3 /uL 0.0-0. 2 normal Not Available [facility] ([facility]) [address], [place], [address], 11/29/2024 08:13:33 11/28/19 25 11/29/2024 CBC WITH DIFFE RENTI AL/PL ATELE T immature granulocytes 1 % not estab. Not Available [facility] ([facility]) [address], [place], [address], 11/29/2024 08:13:33 11/28/19 25 11/29/2024 CBC WITH DIFFE RENTI AL/PL ATELE T immature grans (abs) 0.1 x10e3 /uL 0.0-0. 1 Not Available [facility] ([facility]) [address], [place], [address], 11/29/2024 08:13:33 11/28/19 25 11/29/2024 CBC WITH DIFFE RENTI AL/PL ATELE T NRBC TILE TRIMMER Not Available [facility] ([facility]) [address], [place], [address], 11/29/2024 08:13:33 11/28/19 25 11/29/2024 CBC WITH DIFFE RENTI AL/PL ATELE T hematology comments: TILE TRIMMER Not Available [facility] ([facility]) [address] [place], [address], 11/29/2024 08:13:33 11/28/19 25 11/29/2024 COMP. METAB OLIC PANEL (14) glucose 104 mg/dL 70-99 above high normal Not Available [facility] ([facility]) [address] [place], [address], 11/29/2024 08:13:34 11/28/19 25 11/29/2024 COMP. METAB OLIC PANEL (14) BUN 8 mg/dL 8-27 normal Not Available [facility] ([facility]) [address] [place], [address], 11/29/2024 08:13:34 11/28/19 25 11/29/2024 COMP. METAB OLIC PANEL (14) creatinine 0.73 mg/dL 0.76-1 .27 below low normal Not Available [facility] ([facility]) [address] [place], [address], 11/29/2024 08:13:34 11/28/19 25 11/29/2024 COMP. METAB OLIC PANEL (14) eGFR 100 mL/mi n/1.7 3 >59 normal Not Available [facility] ([facility]) [address] [place], [address], 11/29/2024 08:13:34 11/28/19 25 11/29/2024 COMP. METAB OLIC PANEL (14) BUN/creatini ne ratio 11 10-24 normal Not Available [facility] ([facility]) [address] [place], [address], 11/29/2024 08:13:34 11/28/19 25 11/29/2024 COMP. METAB OLIC PANEL (14) sodium 139 mmol/ L 134-14 4 normal Not Available [facility] ([facility]) [address] [facility] [place], [address], 11/29/2024 08:13:34 11/28/19 25 11/29/2024 COMP. METAB OLIC PANEL (14) potassium 4.0 mmol/ L 3.5-5. 2 normal Not Available [facility] ([facility]) [address] [place], [address], 11/29/2024 08:13:34 11/28/19 25 11/29/2024 COMP. METAB OLIC PANEL (14) chloride 102 mmol/ L 96-106 normal Not Available [facility] ([facility]) [address] [place], [address], 11/29/2024 08:13:34 11/28/19 25 11/29/2024 COMP. METAB OLIC PANEL (14) carbon dioxide, total 23 mmol/ L 20-29 normal Not Available [facility] ([facility]) [address] [place], [address], 11/29/2024 08:13:34 11/28/19 25 11/29/2024 COMP. METAB OLIC PANEL (14) calcium 8.9 mg/dL 8.6-10 .2 normal Not Available [facility] ([facility]) [address] [place], [address], 11/29/2024 08:13:34 11/28/19 25 11/29/2024 COMP. METAB OLIC PANEL (14) protein, total 6.7 g/dL 6.0-8. 5 normal Not Available [facility] ([facility]) [address] [place], [address], 11/29/2024 08:13:34 11/28/19 25 11/29/2024 COMP. METAB OLIC PANEL (14) albumin 4.0 g/dL 3.9-4. 9 normal Not Available [facility] ([facility]) [address] [place], [address], 11/29/2024 08:13:34 11/28/19 25 11/29/2024 COMP. METAB OLIC PANEL (14) globulin, total 2.7 g/dL 1.5-4. 5 Not Available [facility] ([facility]) [address] [place], [address], 11/29/2024 08:13:34 11/28/19 25 11/29/2024 COMP. METAB OLIC PANEL (14) bilirubin, total 0.4 mg/dL 0.0-1. 2 normal Not Available [facility] ([facility]) [address] [place], [address], 11/29/2024 08:13:34 11/28/19 25 11/29/2024 COMP. METAB OLIC PANEL (14) alkaline phosphatase 109 IU/L 44-121 normal Not Available [facility] ([facility]) [address] [place], [address], 11/29/2024 08:13:34 11/28/19 25 11/29/2024 COMP. METAB OLIC PANEL (14) AST (SGOT) 28 IU/L 0-40 normal Not Available [facility] ([facility]) [address], [place], [address], 11/29/2024 08:13:34 11/28/19 25 11/29/2024 COMP. METAB OLIC PANEL (14) ALT (SGPT) 49 IU/L 0-44 above high normal Not Available [facility] ([facility]) [address] [place], [address], 11/29/2024 08:13:34 11/28/19 25 11/29/2024 LIPID PANEL cholesterol, total 186 mg/dL 100-19 9 normal Not Available [facility] ([facility]) [address] [place], [address], 11/29/2024 08:13:35 11/28/19 25 11/29/2024 LIPID PANEL triglyceride s 143 mg/dL 0-149 normal Not Available [facility] ([facility]) [address] [place], [address], 11/29/2024 08:13:35 11/28/19 25 11/29/2024 LIPID PANEL HDL cholesterol 31 mg/dL >39 below low normal Not Available [facility] ([facility]) [address] [place], [address], 11/29/2024 08:13:35 11/28/19 25 11/29/2024 LIPID PANEL VLDL cholesterol madi 26 mg/dL 5-40 Not Available [facility] ([facility]) [address] [place], [address], 11/29/2024 08:13:35 11/28/19 25 11/29/2024 LIPID PANEL LDL chol calc ([facility]) 129 mg/dL 0-99 above high normal Not Available [facility] ([facility]) [address] [place], [address], 11/29/2024 08:13:35 11/28/19 25 11/29/2024 LIPID PANEL LDL calc comment: TILE TRIMMER Not Available [facility] ([facility]) [address] [place], [address], 11/29/2024 08:13:35 11/28/19 25 11/29/2024 ALBUM IN/CR EAT RATIO , RANDO M UR creatinine, urine 86.7 mg/dL not estab. normal Not Available [facility] ([facility]) [address] [place], [address], 11/29/2024 08:13:35 11/28/19 25 11/29/2024 ALBUM IN/CR EAT RATIO , RANDO M UR albumin, urine 21.0 ug/mL not estab. Not Available [facility] ([facility]) [address] [place], [address], 11/29/2024 08:13:35 11/28/19 25 11/29/2024 ALBUM IN/CR EAT RATIO , ELENA Gibson UR alb/creat ratio 24 mg/g_ creat 0-29 Uhsa l: 0 - 29 Moder ately incre ased: 30 - 300 Sever lorna incre ased: >300 Not Available [facility] ([facility]) [address], [place], [address], 11/29/2024 08:13:35 11/28/19 25 11/29/2024 HEMOG LOBIN A1C hemoglobin A1C 6.6 % 4.8-5. 6 above high normal Predi abete s: 5.7 - 6.4 Diabe clyde: >6.4 Glyce shala contr ol for adult s with diabe clyde: <7.0 Not Available [facility] ([facility]) [address], [place], [address], 11/29/2024 08:13:36 11/28/19 25 11/29/2024 PROST ATE-S PECIF IC AG prostate specific Ag 1.5 NG/mL 0.0-4. 0 normal Jamshid ECLIA metho dolog y. Accor ding to the Ameri can Urolo gical Assoc iatio n, Serum PSA shoul d decre ase and remai n at undet ectab le level s after radic al prost atect lizbet. The AUA defin es bioch emica l recur rence as an initi al PSA value 0.2 ng/mL or great er follo wed by a subse quent confi rmato ry PSA value 0.2 ng/mL or great er. Value s obtai zahida with diffe rent assay metho ds or kits canno t be used inter mena earosaliay . Resul ts canno t be inter prete d as absol hughes evide nce of the prese nce or absen ce of jose maria lewis se. Not Available [facility] ([facility]) [address], [place], [address], 11/29/2024 08:13:37 11/28/19 25 11/29/2024 VITAM IN D, 25-HY DROXY vitamin D, 25-hydroxy 12.1 NG/mL 30.0-1 00.0 below low normal Vitam in D defic iency has been defin ed by the Insti tute of Medic ine and an Endoc rine Socie ty pract ice guide line as a level of serum 25-OH vitam in D less than 20 ng/mL (1,2) . The Endoc rine Socie ty went on to furth er defin e vitam in D insuf ficie ncy as a level betwe en 21 and 29 ng/mL (2). 1. IOM (Inst itute of Medic ine). 2010. Ludwin ry refer latia mejia es for calci um and D. Charlie blanco [place]: [facility] . 2. Greg owen MF, Tg marx [place], Rl off-F errar i LEONARD, et al. Evalu ation , treat ment, and preve ntion of vitam in D defic iency : an Endoc rine Socie ty clini madi pract ice guide line. JCEM. 2010; 96(7) :1911 -30. Not Available [facility] ([facility]) [address], [place], [address], 11/29/2024 08:13:38 03/13/20 25 03/13/2025 HbA1c (hemo globi n A1c), blood HbA1c 6.3 Not Available [address], [address], 03/13/2025 09:18:26 03/04/20 23 02/25/2023 CPAP compl iance * No observ ation record ed. [email or web address] [employer] [address], [address], 04/03/2023 09:01:10 03/20/20 23 03/02/2023 CPAP compl iance * No observ ation record ed. [email or web address] [employer] [address], [address], 03/20/2023 12:33:36 09/20/20 24 CPAP compl iance * No observ ation record ed. [email or web address] [employer] [facility] [address] [facility] [address], [place], [address], 09/21/2024 08:03:54 11/28/19 25 XR, chest , 2 view No observ ation record ed. [address], [address], 11/28/2024 12:30:37 12/06/19 25 XR, chest , 2 view No observ ation record ed. [address], [address], 12/06/2024 11:34:06 Result Notes None recorded. Problems Name Problem SNOMED Code Status Onset Date Resolution Date Notes Provider Name and Address Organization Details Recorded Time Vitamin D deficiency 70900194 Active 2024 Lauryn Garay APRN [address] [place], [address], [employer] 09:49:18 Tobacco dependence caused by cigarettes 6868469289292 9107 Active 2024 Lauryn Garay APRN [address] [place], [address], [employer] 5 17:46:50 Body mass index 30+ - obesity 760607661 Active 2024 Lauryn Garay APRN [address] [place], [address], [employer] 09:53:54 Osteoarthri tis of knee 319054293 Active 2024 Lauryn Garay APRN [address] [place], [address], [employer] 17:47:43 Essential hypertensio n 18522070 Active 2024 Lauryn Garay APRN [address] [place] [address], [address], [employer] 17:47:40 Type 2 diabetes mellitus without complicatio n 853540458 Active 2024 Lauryn Garay APRN [address] [place] [address], [address], [employer] 17:47:46 Obstructive sleep apnea syndrome 32302947 Active 2024 Lauryn Garay APRN [address] [place] [address], [address], [employer] 19:37:08 Type 2 diabetes mellitus 05147212 Active 2024 Lauryn Garay APRN [address] [place] [address], [phone], [employer] 09:22:28 Multiple nodules of lung 026026529 Active 2024 Lauryn Garay APRN [address] [place] [address], [phone], [employer] 09:27:05 Centriacina r emphysema 72032198 Active 2024 Lauryn Garay APRN [address] [place] [address], [phone], [employer] 09:35:30 Candidal intertrigo 055621147 Active 2024 Lauryn Garay APRN [address] [place], [phone], [employer] 09:38:57 Neoplasm of skin 035875036 Active 2024 Lauryn Garay APRN [address] [place], [address], [employer] 09:43:14 Osteoarthri tis 006280135 Active 2024 Lauryn Garay APRN [address] [facility], [place], [address], [employer] 10:02:19 Problem Notes None recorded. Procedures Surgical History Date Name Laterality Status Provider Name and Address Organization Details Recorded Time 10/12/19 05 cholecystectomy completed MARTÍNEZ DENNISRACHEL [employer] 03/18/2023 16:22:20 Imaging Results None recorded. Procedure Notes None recorded. Medical Equipment None Reported. Allergies No known drug allergies Medications Name Sig Start Date Stop Date Status Note LastModified by Organization Details LastModified Time metformin 500 mg tablet Take 1 tablet twice a day by oral route. 12/05 completed Not Available Not Available Not Available azithromyci n 250 mg tablet TAKE 2 TABLETS BY MOUTH ON DAY 1, AND THEN TAKE 1 TABLET BY MOUTH ONCE A DAY ON DAY 2 THROUGH DAY 5 11/28 completed Not Available Not Available Not Available doxycycline monohydrate 100 mg tablet 03/18 completed Not Available Not Available Not Available Celebrex 200 mg capsule Take 1 capsule every day by oral route as needed, for arthritis . 2024 active Not Available Not Available Not Avai lable ceftriaxone 1 gram solution for injection Take 1 g by injection route. 12/05 completed Not Available Not Available Not Available benzonatate 100 mg capsule TAKE 1 CAPSULE BY MOUTH TWICE DAILY NEEDED FOR COUGH 11/28 completed Not Available Not Available Not Available dexamethaso ne 4 mg tablet 03/18 completed Not Available Not Available Not Available hydrochloro thiazide 25 mg tablet Take 1 tablet every day by oral route in the morning. 2024 active Not Available Not Available Not Avai lable nystatin 100,000 unit/gram topical powder APPLY TO groin BY TOPICAL ROUTE 2 TIMES PER DAY 2024 active Not Available Not Available Not Avai lable albuterol sulfate HFA 90 mcg/actuati on aerosol inhaler Inhale 2 puffs by mouth every 4 hours as needed, for cough or wheeze. active Not Available Not Available No t Available Vitamin D2 1,250 mcg (50,000 unit) capsule TAKE ONE CAPSULE BY MOUTH once weekly active Not Available Not Available No t Available cefdinir 300 mg capsule TAKE ONE CAPSULE BY MOUTH EVERY TWELVE HOURS FOR 7 DAYS with meals 12/05 completed Not Available Not Available Not Available doxycycline hyclate 100 mg tablet 11/28 completed Not Available Not Available Not Available Adult Low Dose Aspirin 81 mg tablet,lynda yed release Take 1 tablet every day by oral route. active Not Available Not Available No t Available ezetimibe 10 mg tablet TAKE 1 TABLET BY MOUTH ONCE DAILY 03/18 completed Not Available Not Available Not Available rosuvastati n 10 mg tablet Take 1 tablet every day by oral route, for cholester ol. 2024 active Not Available Not Available Not Avai lable amlodipine 10 mg-benazepr il 40 mg capsule Take 1 capsule every day by oral route. 2024 active Not Available Not Available Not Avai lable varenicline tartrate 1 mg tablet TAKE 1 TABLET BY MOUTH TWICE DAILY 03/18 completed Not Available Not Available Not Available Symbicort 160 mcg-4.5 mcg/actuati on HFA aerosol inhaler Inhale 2 puffs twice a day by inhalatio n route. 2024 active Not Available Not Available Not Avai lable Mucus DM 30 mg-600 mg tablet,exte nded release TAKE ONE TABLET BY MOUTH EVERY TWELVE HOURS FOR 7 DAYS 12/05 completed Not Available Not Available Not Available Jardiance 10 mg tablet Take 1 tablet every day by oral route in the morning, for diabetes. 2024 active Not Available Not Available Not Avai lable Trelegy Ellipta 100 mcg-62.5 mcg-25 mcg powder for inhalation INHALE 1 PUFF ONCE DAILY 09/20 completed Not Available Not Available Not Available Lagevrio 200 mg capsule (EUA) 03/18 completed Not Available Not Available Not Available Vitals Date Recorded Body height Body mass index (BMI) Body weight Body temperature Heart rate Oxygen saturation Oxygen saturation in Arterial blood by Pulse oximetry Systolic blood pressure Diastolic blood pressure Systolic blood pressure Diastolic blood pressure Systolic blood pressure Diastolic blood pressure Provider Name and Address Organization Details Last Updated DateTime 172.72 cm 37.9 kg/m2 918384. 5 g 97.7 [degF] 80 /min 91 % 91 % 190 mm[Hg] 74 mm[Hg] 163 mm[Hg] 74 mm[Hg] 160 mm[Hg] 75 mm[Hg] MARTÍNEZ DENNISNEAR [employer] 5 09:38:14 Date Recorded Body height Body mass index (BMI) Body weight Heart rate Oxygen saturation Oxygen saturation in Arterial blood by Pulse oximetry Systolic blood pressure Diastolic blood pressure Systolic blood pressure Diastolic blood pressure Systolic blood pressure Diastolic blood pressure Provider Name and Address Organization Details Last Updated DateTime 5 172.72 cm 38.5 kg/m2 058207. 97 g 81 /min 91 % 91 % 200 mm[Hg] 86 mm[Hg] 186 mm[Hg] 78 mm[Hg] 199 mm[Hg] 90 mm[Hg] [employer] 5 14:46:07 Date Recorded Body height Body mass index (BMI) Body weight Body temperature Heart rate Oxygen saturation Oxygen saturation in Arterial blood by Pulse oximetry Systolic blood pressure Diastolic blood pressure Provider Name and Address Organization Details Last Updated DateTime 5 172.72 cm 38.3 kg/m2 076519. 84 g 97.7 [degF] 72 /min 90 % 90 % 128 mm[Hg] 63 mm[Hg] MARTÍNEZ [employer] 5 09:17:38 Date Recorded Body height Body mass index (BMI) Body weight Body temperature Heart rate Oxygen saturation Oxygen saturation in Arterial blood by Pulse oximetry Systolic blood pressure Diastolic blood pressure Provider Name and Address Organization Details Last Updated DateTime 3 172.72 cm 39.6 kg/m2 083690. 73 g 98 [degF] 80 /min 92 % 92 % 137 mm[Hg] 74 mm[Hg] MARTÍNEZ MYNEAR [employer] 3 16:08:15 Date Recorded Body height Body mass index (BMI) Body weight Body temperature Heart rate Oxygen saturation Oxygen saturation in Arterial blood by Pulse oximetry Systolic blood pressure Diastolic blood pressure Provider Name and Address Organization Details Last Updated DateTime 4 172.72 cm 38.9 kg/m2 541178. 65 g 98.1 [degF] 82 /min 92 % 92 % 139 mm[Hg] 62 mm[Hg] MARTÍNEZ [email or web address] 17:22:05 Social History Question Answer Notes LastModified by Organizat ion Details LastModified Time Tobacco Smoking Status Current Every Day Smoker MARTÍNEZ SAROJ prince [employer] 03/18/2023 16:20:57 Do You Have An Advance Directive? No Information n ot available 03/18/2023 Is Your Home Air Conditioned? Yes Information not available 03/18/2023 Are You Blind Or Do You Have Difficulty Seeing? No Information n ot available 03/18/2023 In The 14 Days Before Symptom Onset, Have You Had Close Contact With A Laboratory-confirm ed COVID-19 While That Case Was Ill? No Information n ot available 03/18/2023 In The 14 Days Before Symptom Onset, Have You Had Close Contact With A Person Who Is Under Investigation For COVID-19 While That Person Was Ill? No Information not available 03/18/2023 Have You Been To An Area Known To Be High Risk For COVID-19? No Information not available 03/18/2023 Are You Deaf Or Do You Have Serious Difficulty Hearing? No Information not available 03/18/2023 What Type Of Diet Are You Following? DIABETIC Information n ot available 03/18/2023 Are There Any Guns Present In Your Home? No Information not available 03/18/2023 Do You Have A Medical Power Of Poultry Farm Worker? No Information not available 03/18/2023 What Was The Date Of Your Most Recent Tobacco Screening? 03/13/2025 Information not available 03/13/2025 What Is Your Current Pack Years? 30ormorepacky ears Information not available 03/18/2023 What Is Your Relationship Status? Information not available 03/18/2023 Do You Use Your Seat Belt Or Car Seat Routinely? Yes Information not available 03/18/2023 Do You Have Smoke And Carbon Monoxide Detectors In Your Home? Yes Information not available 03/18/2023 At What Age Did You Start Smoking Tobacco? 18 Information not available 03/18/2023 Are You Passively Exposed To Smoke? Yes Information no t available 03/18/2023 Are There Any Smokers In Your House? Yes Information not available 03/18/2023 How Much Tobacco Do You Smoke? 1 PPD Information not available 03/18/2023 Do You Participate In Social Media? Yes [email or web address] Information not available 12/05/2024 Do You Use Sunscreen Routinely? No Information not available 03/18/2023 How Many Years Have You Smoked Tobacco? 49 Information not available 03/18/2023 Have You Recently Traveled Abroad? No Information not available 03/18/2023 Do You Have Difficulty Walking Or Climbing Stairs? No Information not available 03/18/2023 Do You Have Any Dietary Restrictions? No Information not available 03/18/2023 Sex: Male Functional Status Question Answer Note LastModified by Organizat ion Details LastModified Time Do you use any illicit or recreational drugs? No Information not available 03/18/2023 Do you or have you ever used any other forms of tobacco or nicotine? No Information not available 03/18/2023 What is your level of alcohol consumption? None Information not available 03/18/2023 Are you currently employed? Yes Information not available 03/18/2023 Do you have transportation difficulties? No Information not available 03/18/2023 Do you have difficulty doing errands alone? No Information not available 03/18/2023 Are you able to care for yourself? Yes Information not available 03/18/2023 Do you have difficulty dressing or bathing? No Information not available 03/18/2023 Mental Status Question Answer Note LastModified by Organizat ion Details LastModified Time Do you feel stressed (tense, restless, nervous, or anxious, or unable to sleep at night)? [id number] [email or web address] Information not available 12/05/2024 Do you have difficulty concentrating, remembering or making decisions? No Information no t available 03/18/2023 Family History Nothing Reported. Medical History Condition Response Hospitalizations N Emergency room visit since last appointm ent. N Immunizations Vaccine Type Date Status Note Provider Nam e and Address Organization Details Recorded Time zoster live 7 completed Not Available [facility] 03/13/2025 08:52:14 Influenza, split virus, quadrivalent, preservative 7 completed Not Available [facility] 03/13/2025 08:52:14 pneumococcal polysaccharide PPV23 7 completed Not Available [facility] 03/13/2025 08:52:14 Influenza, split virus, quadrivalent, PF 9 completed Not Available [facility] 03/13/2025 08:52:14 pneumococcal polysaccharide PPV23 9 completed Not Available [facility] 03/13/2025 08:52:14 Influenza, recombinant, quadrivalent, PF 0 completed Not Available [facility] 03/13/2025 08:52:14 COVID-19, mRNA, LNP-S, PF, 100 mcg/0.5mL dose or 50 mcg/0.25mL dose 1 completed Not Available [facility] 03/13/2025 08:52:14 COVID-19, mRNA, LNP-S, PF, 100 mcg/0.5mL dose or 50 mcg/0.25mL dose 1 completed Not Available [facility] 03/13/2025 08:52:14 COVID-19, mRNA, LNP-S, PF, 100 mcg/0.5mL dose or 50 mcg/0.25mL dose 1 completed Not Available [facility] 03/13/2025 08:52:14 Influenza, recombinant, quadrivalent, PF 2 completed Not Available [facility] 03/13/2025 08:52:14 Influenza, high-dose, trivalent, PF 4 completed Not Available [facility] 03/13/2025 08:52:14 zoster recombinant 4 completed Not Available [facility] 03/13/2025 08:52:14 Past Encounters Encounter ID Performer Location Encounter Start Date Encounter Closed Date Diagnosis/Indication Diagnosis SNOMED-CT Code Diagnosis ICD10 Code Diagnosis Note [id number] Lauryn Garay APRN [address] [address] 03/18/2023 15:42:11 03/18/2023 16:53:35 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 Please see CDL exam forms for full details of exam. Body mass index 30+ - obesity 860897690 Z68.38 [id number] Lauryn Garay APRN [address] [address] 11/28/2024 09:28:01 11/28/2024 10:38:29 Pneumonia caused by Influenza A virus 990137701 J09.X1 Begin antx, pulmonary toilet, rest, hydration. Recheck in 1 week with planned f/up CXR. He is to RTC sooner or report to ED for progressio n of SOA, cough or developmen t of new sx. Type 2 justin betes mellitus without complication 522009647 E11.9 Obtain baseline labs today to determine what maintenanc e meds he truly needs for DM 2 and HTN. Essential hypertension 95334736 I10 Osteoarthr itis of knee 210405861 M17.9 Bilateral knee OA on celebrex. Uses celebrex prn for knee OA. Nocturia 331000542 R35.1 Nocturia 1 time per night. Vitamin D deficiency 347 13852 E55.9 Has hx Vit D def. Tobacco de pendence caused by cigarettes 8767676886 5268540 F17.210 Smoking cessation education provided. Body mass index 30+ - obesity 631180769 Z68.38 [id number] Lauryn Garay [address] [address] 12/05/2024 14:20:59 12/05/2024 15:35:05 Pneumonia caused by Influenza A virus 878990488 J09.X1 Resolved on CXR. He has completed antx and feels much improved. Essential hypertension 53262464 I10 Importance of controllin g BP explained. Meds as below. RTC in 1 week for BP check. Type 2 justin betes mellitus without complication 513154721 E11.9 Begin Jardiance and crestor. DM diet, exercise, and eye exam encouraged . Vitamin D deficiency 347 21421 E55.9 Vit D level on labs last week was 12. Start weekly ergocal for 6 months. Body mass index 30+ - obesity 799309739 Z68.38 Obstructiv e sleep apnea syndrome 94826917 G47.33 He is compliant with CPAP nightly. Tobacco de pendence caused by cigarettes 7894397902 6716666 F17.210 Smoking cessation education provided. [id number] Lauryn Garay APRN [address] [address] 03/13/2025 08:51:17 03/13/2025 09:53:44 Preventive procedure 191624867 Z00.00 Patient presented to office today for their Medicare Annual Wellness Visit. Education was provided on healthy nutrition, including a diet rich in fruits and vegetables , minimizing simple carbohydra clyde, salt, and saturated fats. Encouraged regular cardiovasc ular exercise such as walking at least 30 minutes daily, 5 times per week. Emphasized preventive health measures and educated pt on fall prevention and community- based lifestyle interventi ons to help reduce health risks and promote healthy living. Type 2 justin betes mellitus 36062955 E11.9 No DM med changes today. DM diet, exercise, and eye exam encouraged . He was given a Jardiance coupon today. Tobacco de pendence caused by cigarettes 1238893706 2154295 F17.210 Smoking cessation education provided. Essential hypertension 41109572 I10 Importance of controllin g BP explained. Meds as below. Vitamin D deficiency 347 22493 E55.9 Has now taken weekly ergocal for 3 months and needs f/up level. Multiple n odules of lung 305994496 R91.8 Due for 6 month f/up lung CT on nodules Centriacin ar emphysema 07854014 J43.2 Start Symbicort Candidal intertrigo 2661 81647 B37.2 Bilateral groin, use of poweder explained. Neoplasm of skin 7035635 04 D49.2 Right upper arm. Wart vs basal cell.. Osteoarthritis 824947881 M19.90 Continue prn use celebrex. Body mass index 30+ - obesity 269818893 E66.9 Health Concerns Section Related Observation LastModified by Organization Detai ls LastModified Time None Recorded Concern Status LastModified by Organization Details LastModified Time None Recorded Advance Directives Directive N: Payers Insurance Date Sequence Insurance Name Policy Number Policy Sharma Covered Member ID Sharma Member ID Guarantor Name 11/28/2024 1 *SELF PAY* Everett erasmo Hazel 03/13/2025 SLIDING FEE SCHEDULE - DISCOUNT Cb Hazel 03/12/2025 1 [place] [id number] 1 Cb [employer] [id number] [employer] Notes Date Note Type Note Provider Name and Address Organization Details Recorded Time 03/18/2023 text/html 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. 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 Please see CDL exam forms for complete details of exam. His renewal was issued for 1 year. He has no absolute disqualifiers. Lauryn Garay APRN [address] [place], [address], [employer]. 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. 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 Please see CDL exam forms for complete details of exam. His renewal was issued for 1 year. He has no absolute disqualifiers. Lauryn Garay APRN [address] [place], [address], [employer] 09/25/2024 19:44:41 11/28/2024 text/html CoughReported bypatient.Quality:prod uctive Severity:worsening;ivana n with cough Duration:acute (<3 weeks) Onset/Timing:gradual; actual date: (11/22/24) Context:smoker Modifying Factors:OTC medication Associated Symptoms:fever;chills; wheezing;sputum production;shortness of breath;throat clearing;nasal discharge;tiredness;dy spneaDiabetes F/UReported bypatient.Labs:last A1C result: unknown Context:missing doses of medication Associated Symptoms:no dizziness; no sweats; no headaches; no confusion; no increased thirst; no increased appetite; no increased urination; no blurred vision; no numbness of feet; no calluses on feet;weight gain ( lbs)Hypertension F/UReported bypatient.Medications: not taking medications as directed; checks blood pressure at home, range: (130/80) Lifestyle:not exercising regularly;does not adhere to low sodium diet Associated Symptoms:no dizziness; no lightheadedness; no chest pain; no shortness of breath; no palpitations; no edema; no calf pain with exertion; no headache Pt was seen in a [facility] on Thursday11/25/24 due to cough and was dx with FLU and pneumonia. He was placed on doxycycline, but says it upsets his stomach and he cannot tolerate it. He is a smoker. Remains weak with productive cough and SOA. Last fever was 2 days ago.Pat admits she has not taken any of his medications for DM and HTN in about 2 months. He reports he has been checking his BPs at home and BP has been 130's systolic off meds. He has ELOY and is compliant with CPAP nightly. He is a smoker. Lauryn Garay APRN [address] [place] [address], [place], [address], [facility] [employer] 11/28/2024 17:48:31 12/05/2024 text/html CoughReported bypatient.Quality:dry Severity:improving Duration:acute (<3 weeks) Onset/Timing:gradual; actual date: (11/22/24) Context:smoker Modifying Factors:OTC medication; antx Associated Symptoms:no fever; no chills; no chest pain; no heartburn; no nausea; no vomiting; no edema; no agitation; no wheezing; no sputum production; no chest wall tenderness; no shortness of breath;throat clearing;nasal dischargeDiabetes F/UReported bypatient.Labs:last A1C result: 6.6 Context:missing doses of medication Associated Symptoms:no dizziness; no sweats; no headaches; no confusion; no increased thirst; no increased appetite; no increased urination; no blurred vision; no numbness of feet; no calluses on feet;weight gain ( lbs)Hypertension F/UReported bypatient.Medications: not taking medications as directed; checks blood pressure at home, range: (130/80) Lifestyle:not exercising regularly;does not adhere to low sodium diet Associated Symptoms:no dizziness; no lightheadedness; no chest pain; no shortness of breath; no palpitations; no edema; no calf pain with exertion; no headache Pt was seen in a [facility] on Thursday11/25/24 due to cough and was dx with FLU and pneumonia. He was placed on doxycycline, but says it upsets his stomach and he cannot tolerate it. He is a smoker. Remains weak with productive cough and SOA. Last fever was 2 days ago.Pat admits she has not taken any of his medications for DM and HTN in about 2 months. He reports he has been checking his BPs at home and BP has been 130's systolic off meds. He has ELOY and is compliant with CPAP nightly. He is a smoker.Follow up 12/05/24: States he feels much improved. No longer with cough or SOA. Lauryn Garay APRN [address] [place], [address], [facility] [employer] 12/11/2024 19:38:56 03/13/2025 text/html COPDReported bypatient.Onset/Timing :multiple times per day Duration:chronic; has noted for years Severity:slowly worsening; moderate Context:cigarette smoking Alleviating factors:relieved with bronchodilator; relieved with CPAP/BIPAP Aggravating factors:worse with cigarette smoking;worse with exertion Associated Symptoms:dyspnea during exertion;large amounts of clear sputum;obesityDiabetes F/UReported bypatient.Labs:last A1C result: 6.6 Context:normal range of home blood sugars (in the low 100s); seeing eye doctor regularly; checking feet regularly; taking aspirin daily; not missing doses of medications; no side effects from medications Associated Symptoms:no dizziness; no sweats; no headaches; no confusion; no increased thirst; no increased appetite; no increased urination; no blurred vision; no numbness of feet; no calluses on feet;weight gain (2 lbs)Hypertension F/UReported bypatient.Medications: taking medications as directed; no side effects from medication; checks blood pressure at home, range: (130/80) Lifestyle:not exercising regularly;does not adhere to low sodium diet Associated Symptoms:no dizziness; no lightheadedness; no chest pain; no palpitations; no edema; no calf pain with exertion; no headache;shortness of breathMedicare Annual Wellness VisitReported bypatient.Diet and Nutrition:high carbohydrate meals; discussed vitamin and supplement use; discussed portion control; discussed maintaining calcium balance; discussed diet improvement Fracture Risk:no history of fractures; no recent explained fracture Physical Activity:does not exercise on a regular basis; discussed weightbearing activities Depression Risk:never feels sad, empty, or tearful; no loss of interest in activities; no significant changes in weight; no sleep disturbances or insomnia; no agitation; no loss of energy; no feelings of worthlessness or guilt; no thoughts of suicide; no history of depression; no history of mood disorders Orientation:no disorientation to time; no disorientation to date; no disorientation to place Concentration and Memory:no decreased concentrating ability; no memory lapses or loss; does not forget words Speech/Motor difficulties:no speech difficulties; no difficulty expressing formulated concepts; no difficulty with fine manipulative tasks; no difficulty writing/copying; no slowed reaction time; does not knock things over when trying to pick them up Hearing:loss of hearing: in both ears; has hearing aids but does not wear them Vision:no vision problems Activities of Daily Living:able to bathe with limited or no assistance; able to contol urination and bowels; able to dress with limited or no assistance; able to feed self with limited or no assistance; able to get out of chair or bed with limited or no assistance; able to groom with limited or no assistance; able to toilet with limited or no assistance; 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 Instrumental Activities of Daily Living:able to do house work with limited or no assistance; able to grocery shop with limited or no assistance; able to manage medications with limited or no assistance; able to manage money with limited or no assistance; able to prepare meals with limited or no assistance; able to use the phone with limited or no assistance Falls Risk Assessment:no frequent falls while walking; no fall in the past year; no fall since last visit; no dizziness/vertigo Home Safety:reviewed sun protection; no unsafe georgina hazzards; no unsafe stairs; no unsafe gas appliances; working smoke/CO detectors; use of seatbelts; has hand bars in the bathroom/shower; good lighting in the home; number of motor vehicle accidents 0 Vit D level was 12 in November. He has been taking weekly ergocal. OA of multiple joints stable on prn celebrex. He had pulmonary nodules and COPD noted on lung scan last fall. Radiologist recommended 6 month f/up scan and we will get that scheduled for him. He continues to smoke. Has some cough of clear sputum and exertional SOA. He has a large raised crusted skin lesion to right upper arm that he says had grown rapidly over the past 6 months. 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 Remains compliant with CPAP with AHI of 1. Lauryn Garay APRN [address] [facility], [place], [address], [facility] [employer] 03/13/2025 10:02:50
--- OUTSIDE RECORDS SUMMARY | 2025-03-21 06:54 | XMS_ITS | Clinical Summary ---
Author Organization Healthcare Address [address] [place] [address] Care Team Providers Care Qm Consultant Name Role Phone Teja Fraga MD Primary Care Provider + [phone] Immunizations Immunization Administration Dates Next Due Influenza, injectable, quadrivalent, preservativ e free 08/23/2016 Social History Tobacco Use Types Packs/Day Years Used Date Smoking Tobacco: Every Day Alcohol Use Standard Drinks/Week Comments No 0 (1 standard drink = 0.6 oz pur e alcohol) Sex and Gender Information Value Date Recorded Sex Assigned at Not on file Legal Sex Male 7:33 PM EDT Gender Identity Not on file Sexual Orientation Not on file Last Filed Vital Signs Vital Sign Reading Time Taken Comments Blood Pressure - - Pulse - - Temperature - - Respiratory Rate - - Oxygen Saturation - - Inhaled Oxygen Concentration - - Weight 113 kg (249 lb 3 oz) 09/08/2016 11:06 AM EST Height 170.2 cm (5' 7 ) 09/08/2016 11:06 AM EST Body Mass Index 39.03 09/08/2016 11:06 AM EST Plan of Treatment Not on file Care Teams Qm Consultant Relationship Specialty Start Date End Date Teja Fraga MD [address] [place] [address] PCP - General 02/22/21
--- OUTSIDE RECORDS SUMMARY | 2025-03-21 06:54 | XMS_ITS | Continuity of Care Document ---
Author Organization [facility] [employer] [facility] Address [address] [place] [address] Assessment No assessment recorded. Plan of Treatment Reminders Order Date Submit Date Provider Last Modified By Organization Details Last Modified Time Details Appointments FOLLOW UP 30 2024 08:00A Paige Garay APRN Not available Not available Not available Lab HbA1c (hemoglob in A1c), blood 2024 025 [email or web address] [facility], [address] [place] [address], [phone], 03/13/2025 09:54:24 CMP, serum or plasma 2024 025 [facility], [address] [place] [address], [phone], 03/15/2025 07:07:31 lipid panel, serum 2024 025 [facility], [address] [place] [address], [id number], 03/15/2025 07:07:32 vitamin D, 25-hydrox y, total, serum 2024 025 [facility], [address] [place] [address], [id number], 03/15/2025 07:07:32 Referral dermatolo gist referral - Dr Cuellar Tn Cornelius, first avail 2024 025 [email or web address] Cuellar MD, [address] [place] [address], [phone], 03/20/2025 12:15:00 Procedures None recorded. Surgeries None recorded. Imaging CT, chest, w/o contrast - prefers AM appt please [address] ([facility]), [address], [place], [address], 03/20/2025 09:59:24 Medication Orders Symbicort 160 mcg-4.5 mcg/actua tion HFA aerosol inhaler 2024 025 [facility], [address] [place] [address], [id number], 03/13/2025 16:38:47 Celebrex 200 mg capsule 2024 025 [facility], [address] [place] [address], [id number], 03/13/2025 16:38:45 Jardiance 10 mg tablet 2024 025 [facility], [address] [place] [address], [phone], 03/13/2025 16:38:41 rosuvasta tin 10 mg tablet 2024 025 [facility], [address] [place] [address], [id number], 03/13/2025 16:38:25 nystatin 100,000 unit/gram topical powder 2024 025 [facility], [address] [place] [address], [address], 03/13/2025 16:38:32 amlodipin e 10 mg-benaze pril 40 mg capsule 2024 025 [facility], [address] [place] [address], [address], 03/13/2025 16:38:37 hydrochlo rothiazid e 25 mg tablet 2024 025 [facility], [address] [place] [address], [id number], 03/13/2025 16:38:29 Patient TargetsNo targets recorded. Patient InstructionsNo instructions recorded. 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 Problems Name Problem SNOMED Code Status Onset Date Resolution Date Notes Provider Name and Address Organization Details Recorded Time Vitamin D deficiency 53147727 Active 2024 Lauryn Garay APRN [address] [place], [address], [employer] 09:49:18 Tobacco dependence caused by cigarettes 7308981989423 9107 Active 2024 Lauryn Garay APRN [address] [place], [address], [employer] 5 17:46:50 Body mass index 30+ - obesity 539375197 Active 2024 Lauryn Garay APRN [address] [place], [address], [employer] 5 09:53:54 Osteoarthri tis of knee 247831204 Active 2024 Lauryn Garay APRN [address] [place], [address], [employer] 17:47:43 Essential hypertensio n 04393911 Active 2024 Lauryn Garay APRN [address] [place] [address], [address], [employer] 17:47:40 Type 2 diabetes mellitus without complicatio n 510155737 Active 2024 Lauryn Garay APRN [address] [place] [address], [address], [employer] 17:47:46 Obstructive sleep apnea syndrome 10318313 Active 2024 Lauryn Garay APRN [address] [place] [address], [address], [employer] 19:37:08 Type 2 diabetes mellitus 72520320 Active 2024 Lauryn Garay APRN [address] [place] [address], [address], [employer] 09:22:28 Multiple nodules of lung 937582054 Active 2024 Lauryn Garay APRN [address] [place] [address], [address], [employer] 09:27:05 Centriacina r emphysema 03582444 Active 2024 Lauryn Garay APRN [address] [place] [address], [address], [employer] 09:35:30 Candidal intertrigo 490670347 Active 2024 Lauryn Garay APRN [address] [place] [address], [address], [employer] 09:38:57 Neoplasm of skin 980422806 Active 2024 Lauryn Garay APRN [address] [place], [address], [employer] 5 09:43:14 Osteoarthri tis 672315203 Active 2024 Lauryn Garay, [employer] [address] [facility], [place], [address], [employer] 10:02:19 Problem Notes None recorded. Procedures Surgical History Date Name Laterality Status Provider Name and Address Organization Details Recorded Time 10/12/19 05 cholecystectomy completed MARTÍNEZJOE KYLE [employer] 03/18/2023 16:22:20 Imaging Results None recorded. [...] Organization Details Last Updated DateTime 172.72 cm 38.3 kg/m2 855322. 84 g 97.7 [degF] 72 /min 90 % 90 % 128 mm[Hg] 63 mm[Hg] MARTÍNEZ KYLE [place] - [employer] 09:17:38 Social History Question Answer Notes LastModified by Organizat ion Details LastModified Time Tobacco Smoking Status Current Every Day Smoker MATIAS [place] - [employer] 03/18/2023 16:20:57 Do You Have An [...] Do You Have A Medical Power Of House Manager? No Information not available 03/18/2023 What Was [...] Do You Participate In Social Media? Yes [email or web address] Information not available 12/05/2024 Do You Use [...] anxious, or unable to sleep at night)? [id number] [email or web address] Information not available 12/05/2024 Do you have difficulty concentrating, remembering or making decisions? No Information no t available 03/18/2023 Family History Nothing Reported. Medical History Condition Response Hospitalizations N Emergency room visit since last appointm ent. N Immunizations Vaccine Type Date Status Note Provider Nam e and Address Organization Details Recorded Time zoster live 7 completed Not Available [facility] 03/13/2025 08:52:14 Influenza, split virus, quadrivalent, preservative 7 completed Not Available [facility] 03/13/2025 08:52:14 pneumococcal polysaccharide PPV23 7 completed Not Available [facility] 03/13/2025 08:52:14 Influenza, split virus, quadrivalent, PF 9 completed Not Available [facility] 03/13/2025 08:52:14 pneumococcal polysaccharide PPV23 9 completed Not Available [facility] 03/13/2025 08:52:14 Influenza, recombinant, quadrivalent, PF 0 completed Not Available [facility] 03/13/2025 08:52:14 COVID-19, mRNA, LNP-S, PF, 100 mcg/0.5mL dose or 50 mcg/0.25mL dose 1 completed Not Available [facility] 03/13/2025 08:52:14 COVID-19, mRNA, LNP-S, PF, 100 mcg/0.5mL dose or 50 mcg/0.25mL dose 1 completed Not Available [facility] 03/13/2025 08:52:14 COVID-19, mRNA, LNP-S, PF, 100 mcg/0.5mL dose or 50 mcg/0.25mL dose 1 completed Not Available [facility] 03/13/2025 08:52:14 Influenza, recombinant, quadrivalent, PF 2 completed Not Available [facility] 03/13/2025 08:52:14 Influenza, high-dose, trivalent, PF 4 completed Not Available [facility] 03/13/2025 08:52:14 zoster recombinant 4 completed Not Available [facility] 03/13/2025 08:52:14 Past Encounters Encounter ID Performer Location Encounter Start Date Encounter Closed Date Diagnosis/Indication Diagnosis SNOMED-CT Code Diagnosis ICD10 Code Diagnosis Note [id number] Lauryn Garay APRN [address] [address] 03/13/2025 08:51:17 03/13/2025 09:53:44 Preventive procedure 926115213 Z00.00 Patient presented to office today for [...] healthy living. Type 2 justin betes mellitus 27589724 E11.9 No DM med changes today. DM diet, exercise, and eye exam encouraged . He was given a Jardiance coupon today. Tobacco de pendence caused by cigarettes 4248281975 9136734 F17.210 Smoking cessation education provided. Essential hypertension 99759613 I10 Importance of controllin g BP explained. Meds as below. Vitamin D deficiency 347 [address]237 E55.9 Has now taken weekly ergocal for 3 months and needs f/up level. Multiple n odules of lung 302957294 R91.8 Due for 6 month f/up lung CT on nodules Centriacin ar emphysema 67721520 J43.2 Start Symbicort Candidal intertrigo 2661 23618 B37.2 Bilateral groin, use of poweder explained. Neoplasm of skin 9308472 04 D49.2 Right upper arm. Wart vs basal cell.. Osteoarthritis 101904421 M19.90 Continue prn use celebrex. Body mass index 30+ - obesity 116093630 E66.9 Health Concerns Section Related Observation LastModified by Organization Detai ls LastModified Time None Recorded Concern Status LastModified by Organization Details LastModified Time None Recorded Payers Encounter Date Sequence Insurance Name Policy Number Policy Sharma Covered Member ID Sharma Member ID Guarantor Name 03/13/2025 SLIDING FEE SCHEDULE - DISCOUNT [employer] Notes Date Note Type Note Provider Name and Address Organization Details Recorded Time 03/13/2025 text/html COPDReported bypatient.Onset/Yony ng:multiple times per day Duration:chronic; has noted for years Severity:slowly worsening; moderate Context:cigarette smoking Alleviating factors:relieved with bronchodilator; relieved with CPAP/BIPAP Aggravating factors:worse with cigarette smoking;worse with exertion Associated Symptoms:dyspnea during exertion;large amounts of clear sputum;obesityDiabet es F/UReported bypatient.Labs:last A1C result: 6.6 Context:normal range [...] calluses on feet;weight gain (2 lbs)Hypertension F/UReported bypatient.Medication s:taking medications as directed; no side effects from [...] limited or 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 Lauryn Garay APRN [address] [place], [address], [facility] [employer] 03/13/2025 10:02:50
--- NOTE | 2025-03-21 06:56 | CT_ITS ---
FINAL REPORT TECHNIQUE: Axial images were obtained through the chest without contrast. Reconstructed images were obtained and reviewed. This study was performed with techniques to keep radiation doses as low as reasonably achievable, (ALARA). Individualized dose reduction techniques using automated exposure control or adjustment of mA and/or kV according to the patient's size were employed. CLINICAL HISTORY: ABNORMAL FINDING OF LUNG FIELD COMPARISON: 04/03/2023 FINDINGS: There are a few small scattered mediastinal lymph nodes which are stable. Moderate coronary artery calcification is identified. The heart size is normal. There is no pericardial or pleural effusion. There are mild changes of centrilobular emphysema. There is scarring in the right middle lobe, lingula, and left lower lobe. No acute infiltrate is identified. Limited images of the upper abdomen reveal fatty liver. IMPRESSION: No acute infiltrate identified. Reviewed, Interpreted and Dictated by Austin Tomlinson MD Transcribed by Yuni Ramirez Authenticated and [facility]
== END 2025-03-21 23:59 | disposition home or self-care (01) ==
LOC: RAD 06:52
PROVIDERS: PCP Nurse Practitioner Family; Visit Provider Nurse Practitioner Family
DX: J43.2 Centrilobular emphysema (principal); J98.4 Other disorders of lung; I25.10 Atherosclerotic heart disease of native coronary artery without angina pectoris; R91.8 Other nonspecific abnormal finding of lung field
CPT/HCPCS: 71250